=== PATIENT | female | born 1975 | race Caucasian/White ===

== ENCOUNTER → 2021-11-10 | Outpatient (CLI) | payer OTHER ==
[~2021-11-10] MED LIST: DOCUSATE SODIU250 MG PO; FISH OIL 1,0001 EAC1 PO; HYDROCODONE-AC1 EACH PO; IBUPROFEN600 MG PO; MULTI FOR HER1 EACH PO; PROAIR DIGIHAL90 MCG INH; SINGULAIR10 MG PO; SYMBICORT 16010.2 GM INH; VITAMIN B12-FO1 EACH PO; VITAMIN C1000 MG PO; VITAMIN D350 MC3 PO; ZYRTEC10 MG PO
[2021-11-10 10:50] LABS: HEMOGLOBIN 12.4 gm/dl (12.3-15.3); RED BLOOD COUNT 4.01 M/UL (4.00-5.10); WHITE BLOOD COUNT 5.6 K/UL (4.5-11.0)
== END ==
LOC: OPSV2 10:00
PROVIDERS: Obstetrics & Gynecology
DX: Z01.818 Encounter for other preprocedural examination (principal); N81.9 Female genital prolapse, unspecified
CPT/HCPCS: 71046; 81001; 84703; 85025; 93005

== ENCOUNTER → 2021-11-15 | Day surgery (SDC) | payer OTHER | END | disposition home or self-care (01) | LOC: OR 05:25 → EDSTATUS 07:30 | DX: N81.3 Complete uterovaginal prolapse (principal); D25.1 Intramural leiomyoma of uterus; D25.2 Subserosal leiomyoma of uterus; N72 Inflammatory disease of cervix uteri; N32.89 Other specified disorders of bladder; N92.1 Excessive and frequent menstruation with irregular cycle; N94.10 Unspecified dyspareunia; J45.909 Unspecified asthma, uncomplicated; Z87.891 Personal history of nicotine dependence; Z88.1 Allergy status to other antibiotic agents; Z79.899 Other long term (current) drug therapy | CPT/HCPCS: 84703; C1769; J0690; J1100; J1885; J2001; J2250; J2405; J2704; J2710; J3010; J7050; J7120 ==